=== PATIENT | female | born 1945 | race American Indian/Alaskan Native ===

== ENCOUNTER 2017-05-26 21:08 | Emergency (ER) | payer MEDICARE ==
--- NOTE | 2017-05-26 23:44 | XRay Report ---
FINAL REPORT EXAM: XR CHEST ROUTINE 2V HISTORY: le swelling ? CHF TECHNIQUE: Two view chest PA and lateral PRIORS: None. FINDINGS: Cardiac and mediastinal contours are unremarkable. No focal pulmonary infiltrate is identified. No pleural fluid collection seen. Pulmonary vasculature is unremarkable. IMPRESSION: Negative two-view chest
[2017-05-26 23:52] LABS: Basophils % (Auto) 0.1 % (0.0-1.8); Hematocrit 33.8 % (30.3-42.9); Mean Corpuscular HGB Conc 33 % (30-34); Mean Corpuscular Hemoglobin 31 pg (28-32); Mean Corpuscular Volume 95 fl (79-97); Platelet Count 276 K/mm3 (140-440); Red Blood Count 3.55 M/mm3 (3.65-5.03); Red Cell Distribution Width 13.3 % (13.2-15.2)
[2017-05-26 23:59] LABS: Calcium 8.4 mg/dL (8.4-10.2); Chloride 101.6 mmol/L (98-107); Potassium 4.7 mmol/L (3.6-5.0)
[2017-05-27] MEDS ORDERED: TYLENOL PO ONE (14:55)
--- NOTE | 2017-05-27 14:56 | Emergency Department Report ---
ED General Adult HPI - General Chief complaint: Extremity Injury, Lower Stated complaint: R. LEG PAIN AND SWELLING Time Seen by Provider: 05/27/17 14:46 Source: patient Mode of arrival: Ambulatory Limitations: No Limitations - History of Present Illness Initial comments: This is a 71-year-old female. The patient is previously unknown to this provider. Patient presents to the ER with lower extremity swelling. She reports that she is not taking her Lasix. The swelling is constant. It decreases when sitting down, increases when standing up. Denies headache, neck pain, chest pain, abdominal pain, shortness of breath, denies DVT or pulmonary embolus risk factors. -: Gradual Location: left, right, lower extremity Severity scale (0 -10): 0 Consistency: intermittent Improves with: rest Worsens with: movement Associated Symptoms: denies other symptoms. denies: confusion, chest pain, cough, diaphoresis, fever/chills, headaches, loss of appetite, malaise, nausea/ vomiting, shortness of breath, syncope, weakness - Related Data Previous Rx's Medication Instructions Recorded Last Taken Type Furosemide [Lasix] 20 mg PO QDAY #30 tablet 05/27/17 Unknown Rx Allergies Allergy/AdvReac Type Severity Reaction Status Date / Time aspirin Allergy Unknown Verified 05/27/17 08:28 codeine Allergy Unknown Verified 05/27/17 08:28 Penicillins Allergy Unknown Verified 05/27/17 08:28 Sulfa (Sulfonamide Allergy Unknown Verified 05/27/17 08:28 Antibiotics) ED Review of Systems ROS: Stated complaint: R. LEG PAIN AND SWELLING Other details as noted in HPI ED Past Medical Hx - Past Medical History Previous Medical History?: Yes Hx Hypertension: Yes Hx Dementia: Yes - Surgical History Past Surgical History?: Yes Additional Surgical History: hysterectomy, carpal tunnel, cyst on L. overy removed, intestinal surgery - Social History Smoking Status: Never Smoker - Medications Home Medications: Home Medications Medication Instructions Recorded Confirmed Last Taken Type Furosemide [Lasix] 20 mg PO QDAY #30 tablet 05/27/17 Unknown Rx ED Physical Exam - General Limitations: No Limitations General appearance: alert, in no apparent distress - Head Head exam: Present: atraumatic, normocephalic - Eye Eye exam: Present: normal appearance, EOMI. Absent: nystagmus - ENT ENT exam: Present: normal exam, normal orophraynx, mucous membranes moist, normal external ear exam - Neck Neck exam: Present: normal inspection, full ROM. Absent: tenderness, meningismus - Respiratory Respiratory exam: Present: normal lung sounds bilaterally. Absent: respiratory distress, wheezes, rales, rhonchi, stridor, chest wall tenderness - Cardiovascular Cardiovascular Exam: Present: regular rate, normal rhythm, normal heart sounds. Absent: systolic murmur, diastolic murmur, rubs, gallop - GI/Abdominal GI/Abdominal exam: Present: soft, normal bowel sounds. Absent: distended, tenderness, guarding, rebound, rigid, pulsatile mass - Extremities Exam Extremities exam: Present: normal inspection, full ROM, normal capillary refill , pedal edema, calf tenderness - Back Exam Back exam: Present: normal inspection, full ROM. Absent: tenderness, CVA tenderness (R), paraspinal tenderness, vertebral tenderness - Neurological Exam Neurological exam: Present: alert, oriented X3, normal gait, other (Extraocular movements intact. Tongue midline. No facial droop. Facial sensation intact to light touch in the V1, V2, V3 distribution bilaterally. 5 and 5 strength in 4 extremities.. Sensation is intact to light touch in 4 extremities.). Absent : motor sensory deficit - Psychiatric Psychiatric exam: Present: normal affect, normal mood - Skin Skin exam: Present: warm, dry, intact, normal color. Absent: rash ED Course Vital Signs 05/26/17 05/26/17 05/27/17 21:23 23:06 06:28 Temperature 98.3 F Pulse Rate 85 89 94 H Respiratory 16 16 16 Rate Blood Pressure 171/81 171/81 O2 Sat by Pulse 97 98 Oximetry 05/27/17 05/27/17 05/27/17 06:30 06:45 07:00 Temperature Pulse Rate 95 H 90 86 Respiratory 14 19 17 Rate Blood Pressure 161/82 154/77 163/73 O2 Sat by Pulse 96 95 Oximetry 05/27/17 05/27/17 05/27/17 07:15 07:30 07:49 Temperature Pulse Rate 84 108 H 93 H Respiratory 16 14 16 Rate Blood Pressure 157/76 184/105 180/90 O2 Sat by Pulse 96 98 99 Oximetry 05/27/17 05/27/17 05/27/17 08:00 08:30 09:00 Temperature Pulse Rate 92 H 82 83 Respiratory 13 15 20 Rate Blood Pressure 153/93 160/86 164/90 O2 Sat by Pulse 98 97 Oximetry 05/27/17 05/27/17 05/27/17 09:30 10:00 10:30 Temperature Pulse Rate 71 74 80 Respiratory 16 13 15 Rate Blood Pressure 162/89 164/88 175/102 O2 Sat by Pulse 98 96 99 Oximetry 05/27/17 05/27/17 05/27/17 11:15 11:30 12:00 Temperature Pulse Rate Respiratory Rate Blood Pressure 175/102 161/66 156/67 O2 Sat by Pulse 99 99 95 Oximetry 05/27/17 05/27/17 05/27/17 12:30 13:00 13:31 Temperature Pulse Rate 78 Respiratory 16 Rate Blood Pressure 146/64 173/76 162/91 O2 Sat by Pulse 98 99 97 Oximetry 05/27/17 05/27/17 05/27/17 14:00 14:30 15:00 Temperature Pulse Rate 84 Respiratory 17 Rate Blood Pressure 169/83 176/83 173/85 O2 Sat by Pulse 100 97 96 Oximetry 05/27/17 15:30 Temperature Pulse Rate 81 Respiratory 16 Rate Blood Pressure 181/83 O2 Sat by Pulse 99 Oximetry ED Medical Decision Making - Lab Data Result diagrams: 05/26/17 23:15 05/26/17 23:15 Vital Signs 05/26/17 05/26/17 05/27/17 21:23 23:06 06:28 Temperature 98.3 F Pulse Rate 85 89 94 H Respiratory 16 16 16 Rate Blood Pressure 171/81 171/81 O2 Sat by Pulse 97 98 Oximetry 05/27/17 05/27/17 05/27/17 06:30 06:45 07:00 Temperature Pulse Rate 95 H 90 86 Respiratory 14 19 17 Rate Blood Pressure 161/82 154/77 163/73 O2 Sat by Pulse 96 95 Oximetry 05/27/17 05/27/17 05/27/17 07:15 07:30 07:49 Temperature Pulse Rate 84 108 H 93 H Respiratory 16 14 16 Rate Blood Pressure 157/76 184/105 180/90 O2 Sat by Pulse 96 98 99 Oximetry 05/27/17 05/27/17 05/27/17 08:00 08:30 09:00 Temperature Pulse Rate 92 H 82 83 Respiratory 13 15 20 Rate Blood Pressure 153/93 160/86 164/90 O2 Sat by Pulse 98 97 Oximetry 05/27/17 05/27/17 05/27/17 09:30 10:00 10:30 Temperature Pulse Rate 71 74 80 Respiratory 16 13 15 Rate Blood Pressure 162/89 164/88 175/102 O2 Sat by Pulse 98 96 99 Oximetry 05/27/17 05/27/17 05/27/17 11:15 11:30 12:00 Temperature Pulse Rate Respiratory Rate Blood Pressure 175/102 161/66 156/67 O2 Sat by Pulse 99 99 95 Oximetry 05/27/17 05/27/17 05/27/17 12:30 13:00 13:31 Temperature Pulse Rate 78 Respiratory 16 Rate Blood Pressure 146/64 173/76 162/91 O2 Sat by Pulse 98 99 97 Oximetry 05/27/17 05/27/17 05/27/17 14:00 14:30 15:00 Temperature Pulse Rate 84 Respiratory 17 Rate Blood Pressure 169/83 176/83 173/85 O2 Sat by Pulse 100 97 96 Oximetry 05/27/17 15:30 Temperature Pulse Rate 81 Respiratory 16 Rate Blood Pressure 181/83 O2 Sat by Pulse 99 Oximetry Lab Results 05/26/17 05/26/17 05/27/17 Range/Units 23:15 23:15 00:07 WBC 4.0 L (4.5-11.0) K/mm3 RBC 3.55 L (3.65-5.03) M/mm3 Hgb 11.0 (10.1-14.3) gm/dl Hct 33.8 (30.3-42.9) % MCV 95 (79-97) fl MCH 31 (28-32) pg MCHC 33 (30-34) % RDW 13.3 (13.2-15.2) % Plt Count 276 (140-440) K/mm3 Lymph % (Auto) 35.6 H (13.4-35.0) % Nobles % (Auto) 7.9 H (0.0-7.3) % Eos % (Auto) 0.0 (0.0-4.3) % Baso % (Auto) 0.1 (0.0-1.8) % Lymph # 1.4 (1.2-5.4) K/mm3 Nobles # 0.3 (0.0-0.8) K/mm3 Eos # 0.0 (0.0-0.4) K/mm3 Baso # 0.0 (0.0-0.1) K/mm3 Seg Neutrophils % 56.4 (40.0-70.0) % Seg Neutrophils # 2.2 (1.8-7.7) K/mm3 D-Dimer 619.37 H (0-234) ng/mlDDU Sodium 137 (137-145) mmol/L Potassium 4.7 (3.6-5.0) mmol/L Chloride 101.6 (98-107) mmol/L Carbon Dioxide 24 (22-30) mmol/L Anion Gap 16 mmol/L BUN 28 H (7-17) mg/dL Creatinine 1.4 H (0.7-1.2) mg/dL Estimated GFR 37 ml/min BUN/Creatinine Ratio 20 % Glucose 329 H (65-100) mg/dL Calcium 8.4 (8.4-10.2) mg/dL NT-Pro-B Natriuret Pep 358.6 (0-900) pg/mL - Radiology Data Radiology results: report reviewed, [facility] [address] [facility] [id number] 05/27/17 15:53 - Radiology Dept. Note by CASSANDRA MITCHELL [facility] Num: [id number] : 1945 Patient Age: 71 BLE VENOUS DUPLEX COMPLETED. VAS LAB PRELIMINARY REPORT; NO EVIDENCE OF DVT/SVT NOTED IN VESSELS/SEGMENTS EXAMINED, BLE. PHYSICIANS REPORT TO FOLLOW...(RSK) Initialized on 05/27/17 15:53 - END OF NOTE X-ray of the chest is negative - Medical Decision Making Differential diagnosis, including not limited to: Dependent edema, congestive heart failure, DVT Assessment and plan: 71-year-old female with intermittent bilateral lower extremity swelling, patient reports recent outpatient evaluation by her director of quantitative research, Dr. Franco; [phone]. She reports a normal outpatient echocardiogram and carotid duplex. She has no chest pain or shortness of breath , she has no crackles or rales, she is saturating well, her lungs are clear on physical examination, and her chest x-ray does not suggest pneumonia or congestive heart failure. D-dimer was elevated, however bilateral lower extremity DVT study was interpreted initially as negative, and I find the patient to be low risk by well 's criteria. Patient most likely has dependent edema, she will be discharged with Lasix, and she can follow-up with her outpatient primary care doctor and/ or director of quantitative research. Minimal incidental renal insufficiency is appreciated, the patient was informed of this, and she can follow up with either primary care or nephrology for this. Critical care attestation.: If time is entered above; I have spent that time in minutes in the direct care of this critically ill patient, excluding procedure time. ED Disposition Clinical Impression: Leg edema Disposition: DC-01 TO HOME OR SELFCARE Is pt being admited?: No Does the pt Need Aspirin: No Condition: Stable Instructions: Leg Edema (ED) Additional Instructions: Initial ultrasound interpretation of the legs was read as negative. A formal and final interpretation will be completed within the next 24 hours. Please have a primary care doctor or director of quantitative research contact the medical records department to obtain final interpretation. Symptoms most likely coming from dependent edema in the legs. take the water pill/Lasix as directed. Please note that laboratory studies indicated mild renal impairment. This should be followed up by either primary care doctor or cellars supervisor within the next month. Follow up with a primary care doctor or cellars supervisor for renal impairments and elevated blood pressure within the next month. Long-term complications of hypertension includes stroke, heart attack, disability, , paralysis. Return to the ER right away with new pain, worsened pain, migration of pain, fevers, chills, lethargy, irritability, projectile vomiting, change in mental status, confusion, inability to tolerate liquid feeds. Prescriptions: Furosemide [Lasix] 20 mg PO QDAY #30 tablet Referrals: PAULA CAIN MD [Primary Care Provider] - 3-5 Days RADHA ANGEL MD [Staff Physician] - 3-5 Days ERNA STUBBS MD [Staff Physician] - 3-5 Days HERMELINDO MCCLENDON MD [Staff Physician] - 3-5 Days
[2017-05-27 15:40] VITALS: BP 181/83
--- NOTE | 2017-05-28 07:44 | Vascular Lab Report ---
LOWER EXTREMITY VENOUS DUPLEX: REASON FOR EXAM: Swelling of the lower extremities. COMMENTS ON THE RIGHT: All veins visualized are freely compressible without evidence of internal echogenicity. Flow is spontaneous and phasic throughout. COMMENTS ON THE LEFT: All veins visualized are freely compressible without evidence of internal echogenicity. Flow is spontaneous and phasic throughout. IMPRESSION: No evidence of acute or chronic deep venous thrombosis in either lower extremity.
== END 2017-05-27 16:30 | disposition home or self-care (01) ==
LOC: ED 21:08
DX: R60.0 Localized edema (principal); I10 Essential (primary) hypertension; F03.90 Unspecified dementia, unspecified severity, without behavioral disturbance, psychotic disturbance, mood disturbance, and anxiety
CPT/HCPCS: 36415; 71020; 80048; 83880; 85025; 85379; 93970